=== PATIENT | male | born 1985 | race Caucasian/White ===

== ENCOUNTER → 2021-07-17 12:39 | Outpatient (BNVA) | payer OTHER, SELFPAY | PROVIDERS: PCP Internal Medicine; Visit Provider Physician Assistant | DX: S69.92XA Unspecified injury of left wrist, hand and finger(s), initial encounter (principal); W18.30XA Fall on same level, unspecified, initial encounter | CPT/HCPCS: 29125; 73130; 99203 ==

== ENCOUNTER → 2021-07-22 10:43 | Outpatient (BNVA) | payer OTHER, SELFPAY | PROVIDERS: PCP Internal Medicine; Visit Provider Physician Assistant | DX: S69.92XA Unspecified injury of left wrist, hand and finger(s), initial encounter (principal); W18.30XA Fall on same level, unspecified, initial encounter | CPT/HCPCS: 99213 ==

== ENCOUNTER 2022-10-12 15:07 | Outpatient (AMB) | payer OTHER, SELFPAY ==
--- NOTE | 2022-10-12 15:15 | A.OFFVIS_ITS ---
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 States he has little lumps/nodule between middle and ring finger. States this has been presents for the last 7 years. This affects him when driving or lifting items. States he has popped it about 6 times in the past but never drained it. Denies numbness, tingling or any injury. Patient wouldlike to have this removed if possible. 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 He says this mass has been present for ~7 years, and he has ruptured it under the skin ~6 times so far by pressing on it. He has not punctured and drained it before He complains of discomfort when using his hand for activities, driving is especially difficult for him. He denies any numbness, tingling, or injury. He works at a [employer] [facility] Medical History (Updated 10/12/22 @ 16:26 by Dinora Boateng MD) Depressed High cholesterol Social History (Updated 10/12/22 @ 15:23 by Bibi Ivory [facility]) Current occupation: [employer]/ rt hand Review of Systems Const All systems reviewed & are unremarkable except as noted in HPI and below Physical Exam Vital Signs: BMI result Body Mass Index 27.7 Const General: cooperative, healthy appearing and no acute distress Orientation/consciousness: patient oriented x3 HEENT Head: Yes normocephalic and Yes atraumatic Eyes EOM: EOMs intact bilaterally Resp Effort & Inspection: normal respiratory effort and able to speak in complete sentences Cardio Jugular venous distension: no JVD Skin General skin exam: turgor normal Rashes: no rashes Neuro General: patient oriented x3 Extrem Other: Evaluation of Right Upper Extremity: The patient is alert, oriented, and in no acute distress Neuro: Median, Ulnar, Radial nerves motor and sensory intact and sensation is normal to the tips of all digits Vascular: Cap refill brisk ROM: He can make a fist and extend all his digits Skin: No lacerations or abrasions. General: No Ecchymosis. No Erythema or evidence of infection. He has a mass just ulnar to the middle finger a1 nii of his right hand, measuring ~8mm in diameter. This appears to be most consistent with a retinacular cyst. No locking or catching with flexion and extension. Psych Appearance: grossly normal Affect: normal affect Attitude: cooperative Office Procedures Fracture Care Details: No fracture, aspiration of ganglion Fracture Billing Code: Fracture Billing Code Results Reviewed Results Reviewed: 10/12/22 15:36 Lidocaine HCl 1 % [Xylocaine 1 %] 2 ml .ROUTE .[employer] ONE Assessment & Plan Assessment & Plan (1) Retinacular ganglion, volar (VRG): Code(s): M67.40 - Ganglion, unspecified site Plan Assessment & Plan: 1. Right middle finger retinacular cyst Measuring ~8mm in diameter, just ulnar to the middle finger a1 nii I educated him about this condition I discussed operative and non-operative treatment options The patient would like to proceed with aspiration Aspiration #1: The risks and benefits of aspiration, including but not limited to risk of damage to blood vessels, nerves, tendons, infection, failure to improve symptoms, increased pain, and possible need for further aspirations or surgical intervention. After obtaining written consent, I sterilely prepped the area over the right middle finger . I then injected subcutaneously with a small amount 1% lidocaine. I then passed an 18 gauge needle into the ganglion and aspirated some clear viscous fluid consistent with a ganglion. Some remaining viscous fluid was then pushed out of the ganglion. The patient tolerated this well and with no complications. After aspiration the patient and I both felt the area and no longer felt the mass. Out of concern for possible recurrence we also talked about surgery to remove the retinacular cyst and filled out the preoperative paperwork. The risks and benefits of operative treatment were discussed with the patient and the patient wishes to proceed with surgery. These risks include, but are not limited to risk of damage to blood vessels, nerves, tendons, infection, recurrence, incomplete relief of preoperative symptoms, persistent pain, possible need for further surgery and the risks associated with regional blocks and anesthesia. The plan is to take the patient to the operating room sometime in the next few weeks for the following procedures: 1. Right middle finger retinacular cyst excision, under local All of the preoperative paperwork including the consent was filled out today. All the patient's questions were answered. The patient understands that they will be contacted by our solar electric/photovoltaic installer soon to schedule this procedure He denies Diabetes, blood thinners, asthma, heart, lung, kidney issues If the cyst recurs in the next month or 2 we can go ahead and sign him up for surgery. Scribed for Dinora Boateng MD by Lux Norris, medical library assistant, on 10/12/22 at 3:40 PM, EST. Coding Level of Care Code New Pt Level 4 (54446) Diagnoses Retinacular ganglion, volar (VRG) M67.40 CPT Codes Fracture Care - Fracture Billing Code: Fracture Billing Code ([id number])
[2022-10-12 15:22] VITALS: BMI 27.7
== END 2022-10-12 16:02 | disposition home or self-care (01) ==
PROVIDERS: PCP Internal Medicine; Visit Provider Orthopaedic Surgery
DX: M67.441 Ganglion, right hand (principal)
CPT/HCPCS: 20612; 99204

== ENCOUNTER → 2022-10-12 15:07 | Outpatient (BNVA) | payer OTHER, SELFPAY | PROVIDERS: PCP Internal Medicine; Visit Provider Orthopaedic Surgery | DX: M67.441 Ganglion, right hand (principal) | CPT/HCPCS: 20612 ==

== ENCOUNTER 2022-10-20 11:50 | Outpatient (REF) | payer OTHER, SELFPAY ==
--- NOTE | ~2022-10-20 | XR_ITS ---
EXAMINATION: XR SHOULDER, RIGHT CLINICAL INFORMATION: Right shoulder pain since Tuesday. COMPARISON: None available. TECHNIQUE: AP external rotation, Grashey, scapular Y, and axillary views of the right shoulder. FINDINGS: The bones and soft tissues are normal. No fracture. Glenohumeral and acromioclavicular alignment is anatomic with normal joint space. No abnormal soft tissue calcifications. XR/XR shoulder RT min 2V IMPRESSION: Unremarkable right shoulder.
== END 2022-10-20 11:51 | disposition home or self-care (01) ==
LOC: HO.HHCX 11:50
PROVIDERS: Visit Provider Family Medicine
DX: M25.511 Pain in right shoulder (principal)
CPT/HCPCS: 73030

== ENCOUNTER 2023-01-26 18:06 | Outpatient (REF) | payer OTHER, SELFPAY ==
[2023-01-26 19:07] LABS: Influenza A PCR NEGATIVE (Negative); Influenza B PCR NEGATIVE (Negative); Resp Syncy Virus RNA Qual PCR NEGATIVE (Negative); SARS COV2 PCR INHOUSE NEGATIVE (Negative)
== END 2023-01-26 18:07 | disposition home or self-care (01) ==
LOC: HO.HHCLNP 18:06
PROVIDERS: Visit Provider Emergency Medicine
DX: Z11.52 Encounter for screening for COVID-19 (principal); J06.9 Acute upper respiratory infection, unspecified
CPT/HCPCS: 0241U

== ENCOUNTER 2023-06-21 11:58 | Outpatient (REF) | payer OTHER, SELFPAY ==
--- NOTE | ~2023-06-21 | XR_ITS ---
EXAMINATION: XR CHEST CLINICAL INFORMATION: Dyspnea on exertion, heavy tobacco use COMPARISON: None available. TECHNIQUE: 2 views of the chest were obtained. FINDINGS: Clear lungs. No pleural effusion or pneumothorax. Normal heart size and mediastinal contours. XR/XR chest 2V IMPRESSION: No acute cardiopulmonary abnormality.
[2023-06-21 13:38] LABS: Hemoglobin 15.7 g/dl (14.0-18.0); Mean Corpuscular HGB Conc 34.1 g/dl (31.0-36.0); Mean Corpuscular Hemoglobin 30.6 pg (27.0-33.0); Mean Corpuscular Volume 89.7 fL (80.0-98.0); Mean Platelet Volume 9.9 fL (9.4-12.4); Platelet Count 313 X10*3/uL (160-400); Red Blood Count 5.13 X10*6/uL (4.60-5.80); Red Cell Distribution Width 12.9 % (11.0-16.0); White Blood Count 12.9 X10*3/uL (4.8-10.8)
[2023-06-21 13:43] LABS: Estimated Average Glucose 111 mg/dL; Hemoglobin A1c % 5.5 % (<6.0)
[2023-06-21 14:08] LABS: Creatinine Urine 130.65 mg/dL; Microalbum/Creatinine Ratio Ur 6.1 ug/mg cr (<30)
[2023-06-21 14:09] LABS: Alanine Aminotransferase 43 U/L (0-40); Albumin Level 4.4 g/dL (3.5-5.0); Alkaline Phosphatase 70 U/L (39-117); Anion Gap 12 (12-20); Aspartate Amino Transferase 30 U/L (5-37); Bilirubin Direct 0.1 mg/dL (0.0-0.5); Bilirubin Total 0.3 mg/dL (0.0-1.0); Blood Urea Nitrogen 12 mg/dL (9-16); Calcium 9.9 mg/dL (8.4-10.2); Carbon Dioxide 31 mmol/L (22-29); Chloride 105 mmol/L (96-108); Cholesterol 213 mg/dL (<200); Estimated Glomerular Filt Rate > 60; Glucose Random 93 mg/dL (60-115); HDL Cholesterol 39 mg/dL (>40); LDL Cholesterol Calculated 105 mg/dL (<100); Potassium 3.9 mmol/L (3.3-5.1); Sodium 144 mmol/L (135-145); Total Protein 7.7 g/dL (6.5-8.0); Triglycerides 349 mg/dL (<150)
[2023-06-21 14:25] LABS: Free T4 (Free Thyroxine) 0.73 ng/dL (0.71-1.85); Thyroid Stimulating Hormone 0.48 uIU/mL (0.32-4.0); Vitamin D 25-OH Total 30.5 ng/mL (>30)
[2023-06-21 15:39] LABS: CT PCR NOT DETECTED (Not Detect.); NG PCR NOT DETECTED (Not Detect.)
[2023-06-22 04:03] LABS: HBS Num1 > 1000.00 mIU/mL (0-7.99); HBsAGNum1 0.35 S/CO (0.00-0.99); HIV AB/AG Nonreactive (Nonreactive); HIV Num 1 0.05 S/CO (0.00-0.99); Hepatitis B Surface Antigen Negative (Negative); ~HepC Num1 0.16 S/CO (0.00-0.79); ~Hepatitis B Surface Antibody REACTIVE (Nonreactive); ~Hepatitis C Antibody Nonreactive (Nonreactive)
[2023-06-23 09:44] LABS: RPR Rapid Plasma Reagin NON-REACTIVE (NON-REACTIVE)
== END 2023-06-21 11:59 | disposition home or self-care (01) ==
LOC: HO.HHCL 11:58
PROVIDERS: Visit Provider Family Medicine
DX: Z00.00 Encounter for general adult medical examination without abnormal findings (principal); Z11.4 Encounter for screening for human immunodeficiency virus [HIV]; Z11.1 Encounter for screening for respiratory tuberculosis; Z20.2 Contact with and (suspected) exposure to infections with a predominantly sexual mode of transmission; R06.09 Other forms of dyspnea; I10 Essential (primary) hypertension
CPT/HCPCS: 0353U; 36415; 71046; 80048; 80061; 80076; 82043; 82306; 82570; 83036; 84439; 84443; 85027; 86592; 86706; 86803; 87340; 87389

== ENCOUNTER 2023-09-08 08:29 | Outpatient (AMB) | payer OTHER, SELFPAY ==
[2023-09-08 08:30] VITALS: BMI 32.7
--- NOTE | 2023-09-08 08:30 | A.OFFVIS_ITS ---
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 Patient reports his pain has been going on for about 6 years in his lower back. He states he experiences burning, tightening and occasional tingling and ADLs become difficult due to his low back pain. He applies lidocaine patches on his back which provide him relief. He expresses dull pain on the medial aspect of his left knee that has been affecting him for about a year. He is unable to drive without pain and discomfort. He has tried and failed Tylenol. Allergies No Known Allergies Allergy (Verified 09/08/23 08:36) Medication List - Last Reconciled 09/08/23 by Yulissa Harris MD atorvastatin 10 mg PO DAILY cholecalciferol (vitamin D3) 50 mcg PO QAM losartan 25 mg PO DAILY varenicline (Chantix) 1 mg PO BID venlafaxine ER 150 mg PO DAILY HPI Comments Details: He has not seen any specialist in the past. No past imaging. Thinks it started after carrying a heavy tree branch at home, 6-7 years. Daily, constant pain, right in the middle and across the back. Non radicular. Tailbone hurts when he sits, denies fall or trauma. Sitting worse than walking. Denies claudication. Denies numbness. Denies weakness. On further questioning, when he bends it feels worse. Feels that it is getting worse, feels more fatigued and untolerable. Played football. Sprained ACL but no back issues. Works in a [employer]. 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 Patient was appropriately conversant and oriented. Good historian. MSK: No specific abnormalities found on inspection of the spine and all extremities. No pain with palpation over the lumbar area. Lumbar ROM was full. Bending forward hurts more than backwards. Bilateral hip, knee and ankle ROM WNL. No ligamentous laxity or crepitance. No increased effusion. Straight-leg raising test negative. FABERE test negative. Strength is 5/5 in all muscle groups tested. No increased tone noted. Neurological: Neurologic examination of the upper and lower extremities was nonfocal with intact sensation, muscle stretch reflexes and without focal motor deficits . Orr?s negative bilaterally. Babinski was down going bilaterally. Clonus was negative. Gait is non-antalgic without loss of balance. Results Reviewed Results Reviewed: I reviewed records from the following: Seen Dr. Boateng in the past for ganglion cyst Assessment & Plan Assessment & Plan (1) Chronic low back pain: Code(s): M54.50 - Low back pain, unspecified; G89.29 - Other chronic pain Category: Medical Qualifiers: Back pain laterality: midline Sciatica presence: without sciatica Qualified Code(s): M54.50 - Low back pain, unspecified; G89.29 - Other chronic pain Plan Chronic axial low back pain, non radicular. Undiagnosed since 7 years old without any imaging or intervention done so far. No signs of radiculopathy or myelopathy on exam. Referring to PT to work on lumbar paraspinals and core strength. Sending for xray to rule out spondylolisthesis or spondylolysis given previous football playing - at the time writing this note, lumbar x-rays were viewed. No fractures, disc space preserved, no spondylolisthesis. Await final reading. We may need further imaging, depending on plain xray final reading results. We may consider injections if PT fails. Separate issue of left knee past injury during football. To see Dr. Briscoe. Assessment and plan discussed with patient, and patient was agreeable. All que stions were answered thoroughly. Yulissa Harris MD, TORIBIO Board Certified, [place] Board of Physical Medicine and Rehabilitation (ABPMR) Board Certified, [place] Board of Electrodiagnostic Medicine (ABEM) Orders: Orders PT Evaluation and Treatment Today G89.29 - Other chronic pain, M54.50 - Low back pain, unspecified XR lumbar spine 2-3V Today G89.29 - Other chronic pain, M54.50 - Low back pain, unspecified, M54.9 - Dorsalgia, unspecified Coding Level of Care Code New Pt Level 4 (31443) Diagnoses Chronic midline low back pain without sciatica M54.50; G89.29 Back pain laterality: midline Sciatica presence: without sciatica
== END 2023-09-08 09:02 | disposition home or self-care (01) ==
LOC: HO.HOS 08:29
PROVIDERS: PCP Internal Medicine; Visit Provider Physical Medicine & Rehabilitation
DX: M54.50 Low back pain, unspecified (principal); G89.29 Other chronic pain
CPT/HCPCS: 99204

== ENCOUNTER 2023-09-08 08:29 | Outpatient (REF) | payer OTHER, SELFPAY ==
--- NOTE | ~2023-09-08 | XR_ITS ---
EXAMINATION: XR LUMBOSACRAL SPINE CLINICAL INFORMATION: Dorsalgia COMPARISON: None available. TECHNIQUE: Three views of the lumbosacral spine. FINDINGS: There are 5 nonrib-bearing lumbar type vertebra. No evidence of acute fracture or malalignment. Vertebral body heights are maintained. Disc spaces are preserved. Small vertebral body endplate osteophytes at L3-L4 and L4-L5. Soft tissues are unremarkable. XR/XR lumbar spine 2-3V IMPRESSION: Minimal degenerative spondylosis at L3-L4 and L4-L5, without significant disc space narrowing.
== END 2023-09-08 08:30 | disposition home or self-care (01) ==
LOC: HO.HOSX 08:29
PROVIDERS: PCP Internal Medicine; Visit Provider Physical Medicine & Rehabilitation
DX: M47.816 Spondylosis without myelopathy or radiculopathy, lumbar region (principal)
CPT/HCPCS: 72100

== ENCOUNTER 2023-10-03 09:40 | Outpatient (AMB) | payer OTHER, SELFPAY ==
--- NOTE | 2023-10-03 09:42 | A.OFFVIS_ITS ---
Vital Signs 10/03/23 09:43 Height 5 ft 8 in Weight 213 lb BMI 32.4 Intake Visit Reasons: New prob- LT ACL Intake Note: Boom is a 38 year old male who presents today for a new problem visit with complaints of left knee pain. Patient reports he has been having this dull pains for about 6 months in the lateral to anterior aspect of his left knee. He express difficulty and discomfort with driving and holding his knee up for stability. He has tried Tylenol and ibuprofen but found no relief with either. Denies recent injury, numbness, and tingling. Hx of left knee LCL strain in high school. Allergies No Known Allergies Allergy (Verified 10/03/23 09:43) HPI HPI New prob- LT ACL: Details: Boom is a 38 year old male who presents today for a new problem visit with complaints of left knee pain. Patient reports he has been having this dull pains for about 6 months in the lateral to anterior aspect of his left knee. He express difficulty and discomfort with driving and holding his knee up for stability. He has tried Tylenol and ibuprofen but found no relief with either. Denies recent injury, numbness, and tingling. Hx of left knee LCL strain in high school. 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 Results Reviewed Results Reviewed: I personally reviewed relevant radiographs. Nl left knee radiographs Assessment & Plan Assessment & Plan (1) Effusion, left knee: Code(s): M25.462 - Effusion, left knee Category: Medical Plan: 6 mo of chance nand swelling. Nl radiographs. MRI to assess effusion. Orders: Orders MR knee LT wo con Today M25.462 - Effusion, left knee XR knee LT 3V Today M25.562 - Pain in left knee Coding Level of Care Code New Pt Level 4 (23013) Diagnoses Effusion, left knee M25.46
[2023-10-03 09:43] VITALS: BMI 32.4
== END 2023-10-03 10:16 | disposition home or self-care (01) ==
PROVIDERS: PCP Internal Medicine; Visit Provider Orthopaedic Surgery
DX: M25.462 Effusion, left knee (principal)
CPT/HCPCS: 99213

== ENCOUNTER 2023-10-03 09:40 | Outpatient (REF) | payer OTHER, SELFPAY ==
--- NOTE | ~2023-10-03 | XR_ITS ---
EXAMINATION: XR KNEE, LEFT CLINICAL INFORMATION: Pain in left knee. COMPARISON: None available. TECHNIQUE: AP standing view of bilateral knees and 2 views of the left knee. FINDINGS: AP standing view of the right knee demonstrates minimal narrowing of the medial compartment with minimal lateral marginal spurring. Left knee: Moderate joint effusion. Minimal narrowing of the medial compartment. Minimal lateral marginal spurring. XR/XR knee LT 3V IMPRESSION: Moderate left knee joint effusion. Minimal degenerative changes.
== END 2023-10-03 09:41 | disposition home or self-care (01) ==
LOC: HO.HOSX 09:40
PROVIDERS: PCP Internal Medicine; Visit Provider Orthopaedic Surgery
DX: M25.462 Effusion, left knee (principal); M25.562 Pain in left knee
CPT/HCPCS: 73562

== ENCOUNTER 2023-10-07 15:00 | Outpatient (RCR) | payer OTHER, SELFPAY ==
--- NOTE | 2023-12-16 07:39 | MHC.PT.DC ---
[facility] [place] Office [place] Office [place] Office [address] Heri Perez [address] [phone] F: [phone] F: [phone] F: [phone] F: [phone] Physical Therapy Discharge Report Diagnosis: Low Back Pain. Date of Surgery: Date of Evaluation: 09/28/23 Date of Discharge: 12/16/23 Treatments to Date: 3 Cancellations to Date: 0 No Shows to Date: 3 Discharge Status: Visit Non-compliance Discharge Summary: Boom is being discharged today per our attendance policy after logging 3 no shows. Electronically signed by: Syed Almeida PT. Please sign and return to therapist. Thank you for your referral.
== END 2023-12-16 07:39 | disposition home or self-care (01) ==
LOC: HO.PT 15:00
PROVIDERS: PCP Family Medicine; Visit Provider Physical Medicine & Rehabilitation
DX: M54.50 Low back pain, unspecified (principal); G89.29 Other chronic pain
CPT/HCPCS: 97110; 97140; 97161

== ENCOUNTER 2023-11-30 08:13 | Outpatient (REF) | payer OTHER, SELFPAY ==
--- NOTE | ~2023-11-30 | MR_ITS ---
EXAMINATION: MR KNEE WITHOUT CONTRAST, LEFT CLINICAL INFORMATION: Effusion left knee. COMPARISON: X-ray of the left knee September 2023. TECHNIQUE: MRI of the knee without contrast was performed using routine sequences on a high-field scanner. FINDINGS: MENISCI: Medial Meniscus: Intact. Lateral Meniscus: Intact. LIGAMENTS: Cruciate: Intact. Collateral: Intact. EXTENSOR MECHANISM: Intact. ARTICULAR CARTILAGE/BONE: Patellofemoral Compartment: Normal. Medial Compartment: Normal. Lateral Compartment: Normal. Proximal Tibiofibular Joint: A small area of lobulated cystic change both within the lateral aspect of the tibial side of the joint and surrounding soft tissues compatible with a ganglion cyst. The extraosseous component measures up to 11 mm transverse and 10 mm AP adjacent to the joint. The intraosseous component measures up to 1 cm. JOINT FLUID AND BURSAE: Trace Ramon's cyst. Trace fluid within or overlying the prepatellar bursa. This could reflect minimal bursitis. MR/MR knee LT wo con IMPRESSION: Small ganglion cyst associated with the proximal tibiofibular joint. Question minimal bursitis versus edema adjacent to the prepatellar bursa. Electronically signed by: Ethan Dan MD 12/04/2023 12:56 PM EDT
== END 2023-11-30 08:14 | disposition home or self-care (01) ==
LOC: HO.MRI 08:13
PROVIDERS: PCP Family Medicine; Visit Provider Orthopaedic Surgery
DX: M25.462 Effusion, left knee (principal)
CPT/HCPCS: 73721

== ENCOUNTER 2024-05-31 09:24 | Outpatient (REF) | payer OTHER, SELFPAY ==
--- OUTSIDE RECORDS SUMMARY | 2024-05-31 10:44 | XMS_ITS | Encounter Summary ---
Author Organization [employer] Address [address] [facility] 7 [place] [address] Care Team Providers Care Central Services Tech Name Role Phone Suzie Belcher DO Primary Care Provider + [phone] Reason for Visit * Reason Onset Date Comments Med Refill 02/25/2023 Encounter Details Date Type Department Care Team ([facility] st Contact Info) Description 02/25/2023 Telephone [facility] [address] [place], [place] [phone] Suzie Belcher DO [address] [place], [place] [phone] Med Refill Social History Tobacco Use Types Packs/Day Years Used Date Smoking Tobacco: Every Day Cigarettes Smokeless Tobacco: Never Alcohol Use Standard Drinks/Week Comments Yes 0 (1 standard drink = 0.6 oz pur e alcohol) Ocasional Depression Answer Date Recorded Patient Health Questionnaire-9 Score 4 06/29/2022 Housing Stability Answer Date Recorded What is your housing situation today? I have greg mcrae 01/11/[address] you li ve. Do you have problems with any of the following? None of the above 01/11/2023 Food Insecurity Answer Date Recorded Within the past 12 months, y ou worried that your food would run out before you got money to buy more: Never True 01/11/2023 Within the past 12 months,th e food you bought just didn't last and you didn't have enough money to get more: Never True Transportation Answer Date Recorded In the past 12 months, has l ack of transportation kept you from medical appts, meetings, work or from getting things needed for daily living? Yes, it has kept me from medical appointments or getting medications. 01/04/2023 Utilities Answer Date Recorded In the past 12 months, has t he electric, gas, oil or water company threatened to shut off services in your home? No 01/11/2023 Depression Answer Date Recorded Patient Health Questionnaire-2 Score 0 08/24/2022 Education Answer Date Recorded What is the highest level of school you have completed or the highest degree you have received? High school graduate 03/12/2022 Sex and Gender Information Value Date Recorded Sex Assigned at Male 01/25/2022 10:37 AM EDT Legal Sex Male 10:37 AM EDT Gender Identity Male 01/25/2022 10:37 AM EDT Sexual Orientation Straight 01/25/2022 10 :37 AM EDT documented as of this encounter Miscellaneous Notes * Telephone Encounter - Suzie Girard LPN - 02/25/2023 1:58 PM EST Medication pended to PCP. * Telephone Encounter - Bernardo Bonilla - 02/25/2023 1:54 PM EST Tc from patient requesting a medication refill for venlafaxine XR (Effexor XR) 150 MG 24 hr capsule. documented in this encounter Plan of Treatment Not on file documented as of this encounter Visit Diagnoses Not on filedocumented in this encounter Additional Health Concerns Assessment Noted Time PHQ-9 Depression Total Score: 4 06/30/19 23 3:21 PM EDT documented as of this encounter Care Teams Central Services Tech Relationship Specialty Start Date End Date Suzie Belcher DO [address] [place] [id number] PCP - General Family Medicine 04/19/22 documented as of this encounter
--- OUTSIDE RECORDS SUMMARY | 2024-05-31 10:44 | XMS_ITS | Encounter Summary ---
Author Organization [employer] Address [address] [facility] 7 [place] [address] Care Team Providers Care Sales Training Manager Name Role Phone Suzie Belcher DO Primary Care Provider + [phone] Reason for Visit * Reason Comments Med Refill Encounter Details Date Type Department Care Team ([facility] st Contact Info) Description 08/21/[address] [facility] [address] [place], [place] [phone] Suzie Belcher DO [address] [place], [place] [phone] Social History Tobacco Use Types Packs/Day Years Used Date Smoking Tobacco: Every Day Cigarettes Smokeless Tobacco: Never Comments:24 years smoking ci garettes Alcohol Use Standard Drinks/Week Comments Yes 0 (1 standard drink = 0.6 oz pur e alcohol) Ocasional Depression Answer Date Recorded Patient Health Questionnaire-9 Score 10 04/19/2023 Patient Health Questionnaire-9 Score 10 04/19/2023 Last PHQ-9: Questionnaire Data Not on file 0 04/19/2023 Housing Stability Answer Date Recorded What is [...] from getting things needed for daily living? No 06/13/2023 Utilities Answer Date Recorded In the past 12 months, has t he electric, gas, oil or water company threatened to shut off services in your home? No 01/11/2023 Depression Answer Date Recorded Patient Health Questionnaire-2 Score 4 04/19/2023 Education Answer Date Recorded What is the [...] AM EDT documented as of this encounter Plan of Treatment Not on file documented as of this encounter Visit Diagnoses Not on filedocumented in this encounter Additional Health Concerns Assessment Noted Time PHQ-9 Depression Total Score: 10 024 9:36 AM EST documented as of this encounter Care Teams Sales Training Manager Relationship Specialty Start Date End Date Suzie Belcher DO [address] [place] [id number] PCP - General Family Medicine 04/19/22 documented as of this encounter
--- OUTSIDE RECORDS SUMMARY | 2024-05-31 10:44 | XMS_ITS | Encounter Summary ---
Author Organization [employer] Address [address] [facility] 7 [place] [address] Care Team Providers Care Retail Merchandising Coordinator Name Role Phone Suzie Belcher DO Primary Care Provider + [phone] Reason for Visit * Reason Comments Med Refill Encounter Details Date Type Department Care Team ([facility] st Contact Info) Description 05/05/2024 Refill [facility] [address] [place], [place] [phone] Suzie Belcher DO [address] [place], [place] [phone] Social History Tobacco Use Types Packs/Day Years Used Date Smoking Tobacco: Every Day Cigarettes Smokeless Tobacco: Never Comments:24 years smoking ci garettes Alcohol Use Standard Drinks/Week Comments Yes 0 (1 standard drink = 0.6 oz pur e alcohol) Ocasional Depression Answer Date Recorded Patient Health Questionnaire-9 Score 21 04/03/2024 Patient Health Questionnaire-9 Score 21 04/03/2024 Last PHQ-9: Questionnaire Data Not on file 0 04/03/2024 Housing Stability Answer Date Recorded What is [...] Answer Date Recorded Patient Health Questionnaire-2 Score 6 04/03/2024 Education Answer Date Recorded What is the [...] Assessment Noted Time PHQ-9 Depression Total Score: 21 025 10:32 AM EST documented as of this encounter Care Teams Retail Merchandising Coordinator Relationship Specialty Start Date End Date Suzie Belcher DO [address] [place] [phone] PCP - General Family Medicine 04/19/22 documented as of this encounter
--- OUTSIDE RECORDS SUMMARY | 2024-05-31 10:44 | XMS_ITS | Encounter Summary ---
Author Organization [employer] Address [address] [facility] 7 [place] [address] Care Team Providers Care Last Trimmer Name Role Phone Suzie Belcher DO Primary Care Provider + [phone] Reason for Visit * Reason Comments Med Refill Encounter Details Date Type Department Care Team ([facility] st Contact Info) Description 09/22/2023 Refill [facility] [address] [place], [place] [phone] Suzie Belcher DO [address] [place], [place] [phone] Hyperlipidemia, unspecified hyperlipidemia type Social History Tobacco Use Types Packs/Day Years [...] documented as of this encounter Visit Diagnoses Diagnosis Hyperlipidemia, unspecified hyperlipidemia type documented in this encounter Additional Health Concerns Assessment Noted Time PHQ-9 Depression Total Score: 10 024 9:36 AM EST documented as of this encounter Care Teams Last Trimmer Relationship Specialty Start Date End Date Suzie Belcher DO [address] [place] [address] PCP - General Family Medicine 04/19/22 documented as of this encounter
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
--- OUTSIDE RECORDS SUMMARY | 2024-05-31 10:44 | XMS_ITS | Encounter Summary ---
Author Organization [employer] Address [address] [facility] 7 [place] [address] Care Team Providers Care Claims Auditor Name Role Phone Suzie Belcher DO Primary Care Provider + [phone] Reason for Visit * Reason Comments Med Refill Encounter Details Date Type Department Care Team ([facility] st Contact Info) Description 05/07/2024 Refill [facility] [address] [place], [place] [phone] Suzie Belcher DO [address] [place], [place] [phone] Hyperlipidemia, unspecified hyperlipidemia type; Essential hypertension Social History Tobacco Use Types Packs/Day Years [...] Visit Diagnoses Diagnosis Hyperlipidemia, unspecified hyperlipidemia type Essential hypertension Unspecified essential hypertension documented in this encounter Additional Health Concerns Assessment Noted Time PHQ-9 Depression Total Score: 21 025 10:32 AM EST documented as of this encounter Care Teams Claims Auditor Relationship Specialty Start Date End Date Suzie Belcher DO [address] [place] [address] PCP - General Family Medicine 04/19/22 documented as of this encounter
--- OUTSIDE RECORDS SUMMARY | 2024-05-31 10:44 | XMS_ITS | Encounter Summary ---
Author Organization [facility] [employer] Address [address] [address] [place] [address] Care Team Providers Care Polisher And Sander Name Role Phone Ye Suzie Primary Care Provider [phone] Encounter Details Date Type Department Care Team (Late st Contact Info) Description 05/31/2024 8:40 AM EST Office Visit [facility] [address] [place] [address] Rosendo Gallardo MD [address] [place] [address] Acute non-recurrent maxillary sinusitis (Primary Dx); Numbness and tingling; Essential hypertension Social History Tobacco Use Types [...] AM EDT documented as of this encounter Last Filed Vital Signs Vital Sign Reading [...] Mass Index 32.54 05/31/2024 8:39 AM EST documented in this encounter Progress Notes * Rosendo Gallardo MD - 05/31/2024 8:40 AM EST Subjective History was provided by the patient. Boom Whittaker is a 38 y.o. male who presents for evaluation of left-sided facial pressure for 2 days. No F/C/N/V/D. No cough, rhinorrhea, or sore throat. Some congestion. Tried saline nasal irrigation and nasal steroid spray without much improvement. Denies any other URI symptoms. Psychiatrist recently changed his medication from Venlafaxine to Escitalopram due to increased anger issues. Took Escitalopram for 2 weeks (5mg daily dose), but still with anger issues and now with dizziness and bilateral lower extremity numbness. Denies weakness. Stopped taking 4 days ago. Psychiatrist is aware and has a follow-up next week. Also started on Propranolol. Elevated BP today at 132/92. States he was unable to take Losartan due to running out of refills. PCP recently ordered labs, but has not completed. Previously had borderline Vitamin D level at 30. Objective Vitals: 05/31/24 0839 BP: (!) 152/97 BP Location: Left arm Patient Position: Sitting BP Cuff Size: Adult Pulse: 92 Resp: 20 Temp: 98.7 ??F (37.1 ??C) TempSrc: Oral SpO2: 96% Weight: 214 lb (97.1 kg) Height: 5' 8 (1.727 m) Physical Exam Vitals reviewed. Constitutional: Appearance: Normal appearance. HENT: Head: Normocephalic and atraumatic. Right Ear: Tympanic membrane, ear canal and external ear normal. Left Ear: Tympanic membrane, ear canal and external ear normal. Nose: Congestion present. No rhinorrhea. Comments: Left-sided maxillary sinus tenderness without edema or deformity. Mouth/Throat: Mouth: Mucous membranes are moist. Pharynx: Oropharynx is clear. Eyes: Extraocular Movements: Extraocular movements intact. Conjunctiva/sclera: Conjunctivae normal. Pupils: Pupils are equal, round, and reactive to light. Cardiovascular: Rate and Rhythm: Normal rate and regular rhythm. Heart sounds: Normal heart sounds. Pulmonary: Effort: Pulmonary effort is normal. Breath sounds: Normal breath sounds. Musculoskeletal: Cervical back: Normal range of motion and neck supple. Skin: General: Skin is warm and dry. Neurological: Mental Status: He is alert and oriented to person, place, and time. Psychiatric: Mood and Affect: Mood normal. Behavior: Behavior normal. Thought Content: Thought content normal. Judgment: Judgment normal. Diagnoses and all orders for this visit: Acute non-recurrent maxillary sinusitis (Primary) - amoxicillin (Amoxil) 500 MG capsule; Take 1 capsule (500 mg) by mouth every 8 (eight) hours for 7days. Numbness and tingling - Vitamin B12/Folate, Serum Panel; Future - cholecalciferol (Vitamin D-3) 25 MCG (1000 UT) tablet; Take 1 tablet (25 mcg) by mouth Once per day. Essential hypertension - losartan (Cozaar) 25 MG tablet; Take 1 tablet (25 mg) by mouth Once per day. Patient presents to [facility] due to left maxillary sinusitis Will treat with Amoxicillin 500mg TID for 7 days Encouraged to continue with nasal saline irrigation Also with elevated BP Refilled Losartan 25mg daily Rx Also recently started on Propranolol prn dosing Advised to check BP at home (has a BP machine) Encouraged to get lab work done Will add Vitamin B12/Folate given BLE numbness sensation Symptoms started after taking Escitalopram which has been since discontinued by Psychiatrist Has an upcoming appointment with Psychiatrist next week Vitamin D supplementation Rx Indications for UC/ER use reviewed Advised to contact the clinic if persistent or worsening symptoms documented in this encounter Plan of Treatment Scheduled Orders Name Type Priority Associated Diagnoses Orde r Schedule Vitamin B12/Folate, Serum Panel Lab Routine Numbness and tingling Expected: 05/31/2024, Expires: 05/31/2025 documented as of this encounter Visit Diagnoses Diagnosis Acute non-recurrent maxillary sinusitis- Primary Numbness and tingling Disturbance of skin sensation Essential hypertension Unspecified essential hypertension documented in this encounter Additional Health Concerns Assessment Noted Time PHQ-9 Depression Total Score: 21 025 10:32 AM EST documented as of this encounter Care Teams Polisher And Sander Relationship Specialty Start Date End Date Suzie Belcher DO [address] [place] [phone] PCP - General Family Medicine 04/19/22 documented as of this encounter
[2024-05-31 11:52] LABS: Hematocrit 46.9 % (42.0-52.0); Hemoglobin 15.7 g/dl (14.0-18.0); Mean Corpuscular HGB Conc 33.5 g/dl (31.0-36.0); Mean Corpuscular Hemoglobin 30.5 pg (27.0-33.0); Mean Corpuscular Volume 91.1 fL (80.0-98.0); Mean Platelet Volume 10.1 fL (9.4-12.4); Platelet Count 314 X10*3/uL (160-400); Red Blood Count 5.15 X10*6/uL (4.60-5.80); Red Cell Distribution Width 12.7 % (11.0-16.0); White Blood Count 13.8 X10*3/uL (4.8-10.8)
[2024-05-31 12:21] LABS: Alanine Aminotransferase 41 U/L (0-40); Albumin Level 4.5 g/dL (3.5-5.0); Alkaline Phosphatase 62 U/L (39-117); Anion Gap 12 (12-20); Aspartate Amino Transferase 40 U/L (5-37); Bilirubin Direct 0.1 mg/dL (0.0-0.5); Bilirubin Total 0.3 mg/dL (0.0-1.0); Blood Urea Nitrogen 8 mg/dL (9-16); Calcium 9.8 mg/dL (8.4-10.2); Carbon Dioxide 30 mmol/L (22-29); Chloride 104 mmol/L (96-108); Cholesterol 275 mg/dL (<200); Estimated Glomerular Filt Rate > 60; Glucose Random 91 mg/dL (60-115); HDL Cholesterol 37 mg/dL (>40); Potassium 4.3 mmol/L (3.3-5.1); Sodium 142 mmol/L (135-145); Total Protein 7.9 g/dL (6.5-8.0); Triglycerides 719 mg/dL (<150)
[2024-05-31 12:30] LABS: Estimated Average Glucose 108 mg/dL; Hemoglobin A1c % 5.4 % (<6.0)
[2024-05-31 12:34] LABS: HIV AB/AG Nonreactive (Nonreactive); HIV Num 1 0.07 S/CO (0.00-0.99); ~HepC Num1 0.14 S/CO (0.00-0.79); ~Hepatitis C Antibody Nonreactive (Nonreactive)
[2024-05-31 12:39] LABS: Free T4 (Free Thyroxine) 0.87 ng/dL (0.71-1.85); Thyroid Stimulating Hormone 0.92 uIU/mL (0.32-4.0)
[2024-05-31 12:41] LABS: Folate 6.8 ng/mL (> or = 4.0); Vitamin B12 1105 pg/mL (200-900)
[2024-06-01 13:30] LABS: CT PCR NOT DETECTED (Not Detect.); NG PCR NOT DETECTED (Not Detect.)
[2024-06-03 14:08] LABS: RPR Rapid Plasma Reagin NON-REACTIVE (NON-REACTIVE)
== END 2024-05-31 09:25 | disposition home or self-care (01) ==
LOC: HO.HHCL 09:24
PROVIDERS: Family Medicine; Visit Provider Family Medicine
DX: Z00.00 Encounter for general adult medical examination without abnormal findings (principal); R20.0 Anesthesia of skin; R20.2 Paresthesia of skin; M25.562 Pain in left knee; J44.9 Chronic obstructive pulmonary disease, unspecified; Z72.0 Tobacco use; G47.33 Obstructive sleep apnea (adult) (pediatric); F33.9 Major depressive disorder, recurrent, unspecified; E78.49 Other hyperlipidemia; I10 Essential (primary) hypertension; Z13.1 Encounter for screening for diabetes mellitus
CPT/HCPCS: 36415; 80048; 80061; 80076; 82306; 82607; 82746; 83036; 84439; 84443; 85027; 86592; 86803; 87389; 87491; 87591

== ENCOUNTER 2024-09-26 11:35 | Outpatient (REF) | payer OTHER, SELFPAY ==
--- OUTSIDE RECORDS SUMMARY | 2024-09-26 12:24 | XMS_ITS | Encounter Summary ---
Author Organization [employer] Address [address] [place] [address] Care Team Providers Care Manager Cancer Name Role Phone Suzie Belcher DO Primary Care Provider [phone] Reason for Visit * Reason Comments Pre-visit Planning SDOH unable to reach LVM Encounter Details Date Type Department Care Team ([facility] st Contact Info) Description 09/21/2024 Patient Outreach [facility] [address] [place] [address] Suzie Belcher DO [address] [place] [address] Pre-visit Planning (SDOH unable to reach LVM ) Social History Tobacco Use Types Packs/Day Years [...] AM EDT documented as of this encounter Progress Notes * Nancy Garcia - 09/21/2024 2:11 PM EDT NIRALI Joshua placed outbound call to patient to complete pre-visit planning. No answer at this time. Patient name and were not confirmed. CC left voicemail requesting return call. Direct contactinformation provided. documented in this encounter Plan of Treatment Upcoming Encounters Date Type Department Care Team (Late st Contact Info) Description 10/01/2024 10:15 AM EDT Office Visit [facility] [address] [place] [address] Suzie Belcher DO [address] [place] [address] documented as of this encounter Visit Diagnoses Not on filedocumented in this encounter Additional Health Concerns Assessment Noted Time PHQ-9 Depression Total Score: 21 025 10:32 AM EST documented as of this encounter Care Teams Manager Cancer Relationship Specialty Start Date End Date Suzie Belcher DO [address] [place] [address] PCP - General Family Medicine 04/19/22 documented as of this encounter
[2024-09-26 13:36] LABS: Cholesterol 194 mg/dL (<200); HDL Cholesterol 33 mg/dL (>40); Triglycerides 204 mg/dL (<150)
[2024-09-26 14:20] LABS: Folate 10.9 ng/mL (> or = 4.0); Vitamin B12 838 pg/mL (200-900)
== END 2024-09-26 11:36 | disposition home or self-care (01) ==
LOC: HO.HHCL 11:35
PROVIDERS: PCP Family Medicine; Visit Provider Family Medicine
DX: R79.89 Other specified abnormal findings of blood chemistry (principal); E78.49 Other hyperlipidemia
CPT/HCPCS: 36415; 80061; 82607; 82746